=== PATIENT | male | born 1980 | race Caucasian/White ===

== ENCOUNTER 2023-04-22 23:17 | Emergency (ER) | payer MEDICAID ==
[~2023-04-22] VITALS: Ht 172.7 cm; Wt 59.0 kg
[2023-04-22] MEDS ORDERED: KETOROLAC TROMETHAMINE 15 MG VIAL IM ONE (23:45)
[2023-04-22 23:49] VITALS: BP_SYST 130; PULSE 72; RESP 16; TEMP 98.5; O2SAT 98
[2023-04-23] MEDS ORDERED: ACET-2634 PO (00:03)
[2023-04-23 00:35] VITALS: O2SAT 98
== END 2023-04-23 00:55 | disposition home or self-care (01) ==
LOC: SED 23:17
DX: J06.9 Acute upper respiratory infection, unspecified (principal); J02.9 Acute pharyngitis, unspecified; B34.9 Viral infection, unspecified; R05.9 Cough, unspecified; Z79.899 Other long term (current) drug therapy
CPT/HCPCS: 99283; 96372; J1885